=== PATIENT | male | born 1980 | race Caucasian/White ===

== ENCOUNTER 2020-10-10 09:59 | Emergency (ER) | payer OTHER, SELFPAY ==
[2020-10-10 10:05] VITALS: BP 202/124; PULSE 96; RESP 16; TEMP 37.1; O2SAT 97; BMI 34.1
--- NOTE | 2020-10-10 10:10 | DI.US.S_ITS ---
PROCEDURE: US PERIPH VENOUS LOW EXTREM LT INDICATIONS: PAIN GROIN TO CALF TECHNIQUE: Real-time imaging, as well as color and pulse Doppler interrogation, were performed of the lower extremity deep veins from the inguinal ligament to the popliteal fossa. COMPARISON: None. FINDINGS: The common femoral, femoral and popliteal veins are normally compressible, and free of intraluminal thrombus. Color and pulse Doppler demonstrate normal phasic intraluminal flow. There is normal augmentation response to distal compression maneuver. IMPRESSION: Negative for left lower extremity deep venous thrombosis. Dictated by: Timothy Carrillo D.O. on 10/10/2020 at 9:53 Approved by: Timothy Carrillo D.O. on 10/10/2020 at 9:55
--- NOTE | 2020-10-10 10:16 | ED.LOWEXIN ---
HPI - Extremity Injury (Lower) General Chief Complaint: Extremity Injury, Lower Stated Complaint: PAIN IN LEFT LEG. FROM [facility] Time Seen by Provider: 10/10/20 10:03 Source: patient Mode of arrival: Ambulatory Limitations: no limitations History of Present Illness HPI Narrative: 39-year-old male former smoker with a history of and unknown vein problem in his left thigh presents from the walk-in clinic for evaluation of various sorts of pain in his left leg for the past 7-8 days. He denies any specific injury. He states sometimes it is his lateral thigh, sometimes it is medial thigh, sometimes as his knee. He denies any numbness, tingling or weakness. He has no fever or chills. He denies recent travel, chest pain or shortness of breath. He does complain that he has back pain and recently got a new pair of boots. Denies trouble controlling bowel or bladder, no footdrop or leg weakness. He has no obvious provocation, palliation Onset (ago): day(s) Relieving factors: nothing Exacerbating factors: nothing Related Data Previous Rx's Medication Instructions Recorded ketorolac 10 mg PO Q6H PRN #14 tab 10/10/20 methylprednisolone [Medrol ([place])] See Rx Instructions .ROUTE 10/10/20 .COMPLEX #21 ea Allergies Allergy/AdvReac Type Severity Reaction Status Date / Time clarithromycin Allergy Verified 11/06/17 10:04 Review of Systems Constitutional Constitutional: Denies chills, Denies fatigue, Denies fever(s), Denies frequent falls, Denies lethargy and Denies weakness Eyes Eyes: Denies change in vision, Denies eye discharge, Denies irritation and Denies loss of vision ENT Ears, Nose, Mouth, and Throat: Denies change in voice, Denies dizziness, Denies neck pain, Denies sore throat and Denies throat swelling Cardiovascular Cardiovascular: Denies chest pain, Denies irregular heart rhythm, Denies lightheadedness, Denies palpitations, Denies dyspnea, Denies dyspnea on exertion and Denies orthopnea Respiratory Respiratory: Denies cough, Denies dyspnea, Denies dyspnea on exertion and Denies wheezing Gastrointestinal Gastrointestinal: Denies abdominal pain, Denies change in bowel habits, Denies diarrhea, Denies nausea and Denies vomiting Musculoskeletal Musculoskeletal: Denies neck pain and Denies numbness Comments: leg pain Integumentary/Breasts Skin/Breast: Denies pruritus, Denies erythema, Denies rash and Denies wounds Neurologic Neurologic: Denies behavioral changes, Denies confusion, Denies dizziness, Denies frequent falls, Denies loss of vision, Denies numbness and Denies weakness Psychiatric Psychiatric: Denies anxiety, Denies behavioral changes, Denies confusion, Denies depression, Denies homicidal ideation and Denies suicidal ideation Endocrine Endocrine: Denies fatigue, Denies flushing and Denies palpitations Hematologic/Lymphatic Hematologic/Lymphatic: Denies easy bruising Allergic/Immunologic Allergic/Immunologic: Denies urticaria, Denies throat swelling and Denies wheezing Patient History Medical History (Updated 10/10/20 @ 10:58 by Chuck Lugo DO) Allergic rhinitis (1997) Chronic back pain (1994) Fatigue GERD (gastroesophageal reflux disease) (~08/2017) Scheurmann's disease Weight gain Surgical History S/P ACL repair (04/2001) Family History (Updated 01/11/18 @ 16:13 by Kaela Hodges LPN) Father Cancer Grandmother No problems noted. Mother Hx of thyroidectomy Social History marital status: Smoking Status: Former smoker alcohol intake: current substance use type: does not use Smoking Status: Former smoker Exam Narrative Exam Narrative: GEN: AOx3 and in mild distress EYES: Pupils are equal, round, and reactive to light and accommodation. Extraoccular muscles are intact bilaterally. There is no subconjunctival hemorrhage or exudate. CHEST: Lungs are clear to auscultation bilaterally and free of wheezes, rales, or rhonchi. Heart rate is regular rhythm, there are no murmurs, clicks, rubs, or gallops. There is no chest wall tenderness. ABD: Abdomen is soft and nontender. There is no guarding or rebound. Bowel sounds are normal in all 4 quadrants. There is no mass or organomegaly. EXT: Full painless ROM of all extremities with no loss of sensation or strength. No pain, redness or swelling of left thigh BACK: strainer tender but free of any obvious external abnormalities. Patient exam notes decreased range of motion and muscle spasm, but no CVA tenderness, or vertebral point tenderness. There are no symptoms of cauda equina such as saddle anesthesia, and decreased reflexes, decreased sensation or strength. SKIN: Warm, pink, and dry. No erythema or rash Initial Vital Signs Initial Vital Signs: Vital Signs Temperature 98.8 F 10/10/20 10:05 Pulse Rate 96 H 10/10/20 10:05 Respiratory Rate 16 10/10/20 10:05 Blood Pressure 202/124 H 10/10/20 10:05 Pulse Oximetry 97 10/10/20 10:05 Course Orders Ordered: ED Orders 10/10/20 10:10 US periph venous low extrem lt Stat Vital Signs Vital signs: Vital Signs - 8 hr 10/10/20 10:05 Temperature 98.8 F Pulse Rate 96 H Respiratory Rate 16 Blood Pressure 202/124 H Pulse Oximetry 97 MDM - Extremity Injury (Lower) Imaging Data US - DVT: Radiologist's Impression: Albert Wiggins Naomie 40 M [address] [address]Ngczyirljt ReportSigned Patient: Albert Wiggins PMR#: [id number]: 1980Acct:[id number]/Sex: 39 / MDate of Service: 10/10/20Loc: EDAccession Number: [id number] Procedure: US perip venous low extrem lt Ordering Provider: Chuck Lugo D.O. PROCEDURE: US PERIPH VENOUS LOW EXTREM LT INDICATIONS: PAIN GROIN TO CALF TECHNIQUE: Real-time imaging, as well as color and pulse Doppler interrogation, were performed of the lower extremity deep veins from the inguinal ligament to the popliteal fossa. COMPARISON: None. FINDINGS: The common femoral, femoral and popliteal veins are normally compressible, and free of intraluminal thrombus. Color and pulse Doppler demonstrate normal phasic intraluminal flow. There is normal augmentation response to distal compression maneuver. IMPRESSION: Negative for left lower extremity deep venous thrombosis. Dictated by: Timothy Carrillo D.O. on 10/10/2020 at 9:53 Approved by: Timothy Carrillo D.O. on 10/10/2020 at 9:55 Discharge Plan Departure Patient Disposition: Home Clinical Impression: Acute leg pain Qualifiers: Laterality: left Qualified Code(s): M79.605 - Pain in left leg Instructions: DI for Leg Pain Activity Restrictions/Additional Instructions: *You have been diagnosed with [left leg pain, ultrasound would suggest no clot. Your description of the discomfort, and exam suggest to me perhaps the issue was your back] *What to do: *Please continue to take your regular medications as directed. [ ] New medication prescriptions sent to your pharmacy: [ ] [ ] New medication written as a paper prescription [ ] No new medications given *Please follow up with your primary care provider in 2-3 days, call for an appointment. Let them know you were seen in the Emergency Department and that we ask that you be seen in follow up. We will electronically transmit a record of today's note if your PCP is in our system *If you do not have a primary care provider please contact the [facility] Resource line at [phone]. They will ask some questions about your medical history and help get you set up with a doctor in the community. *Return to Emergency Department if you should have any new, worsening or concerning symptoms, such as [fever greater than 101 F, shaking chills, worsening pain, persistent vomiting or other bothersome symptoms] Prescriptions: New ketorolac 10 mg tablet 10 mg PO Q6H PRN (Reason: pain) Qty: 14 RF: 0 methylprednisolone [Medrol ([place])] 4 mg tablets,dose pack See Rx Instructions .ROUTE .COMPLEX Qty: 21 RF: 0 Referrals: Miscellaneous,Doctor, MD [Primary Care Provider] -
--- NOTE | 2020-10-10 11:02 | PC.NURSE ---
pt c/o pain in L leg from groin to calf. states he had an unhealthy vein removed in 2018 and wants to make sure there is no DVT, denies SOB. ambulatory.
== END 2020-10-10 11:03 | disposition home or self-care (01) ==
PROVIDERS: Emergency Provider Emergency Medicine
DX: M79.605 Pain in left leg (principal)
CPT/HCPCS: 93971; 99283

== ENCOUNTER 2021-06-29 12:19 | Emergency (ER) | payer OTHER, SELFPAY ==
[2021-06-29] VITALS (8 sets, daily range): BP systolic 179–214; BP diastolic 99–121; PULSE 67–98; RESP 10–27; TEMP 36.6; O2SAT 96–100
--- NOTE | 2021-06-29 12:31 | DI.RAD.S_ITS ---
PROCEDURE: XR CHEST 1V INDICATIONS: Chest pain TECHNIQUE: One view of the chest was acquired. COMPARISON: None. FINDINGS: Surgical changes and devices: None. Lungs and pleura: Lungs are clear. No pleural effusions or pneumothorax. Mediastinum: Mediastinal contours appear normal. Heart size is normal. Bones and chest wall: No suspicious bony lesions. Overlying soft tissues appear unremarkable. IMPRESSION: No acute cardiopulmonary process demonstrated radiographically. Dictated by: Mtaeo Chavarria M.D. on 06/29/2021 at 13:09 Approved by: Mateo Chavarria M.D. on 06/29/2021 at 13:09
[2021-06-29 12:50] LABS: Add Manual Diff / Slide Review NO; Basophils Absolute Auto 0 /uL (0-100); Basophils Percent Auto 0.4 % (0-2); Eosinophils Absolute Auto 100 /uL (0-450); Eosinophils Percent Auto 1.8 % (2-4); Hematocrit 43.6 % (41-53); Lymphocytes Absolute Auto 1500 /uL (1100-4500); Lymphocytes Percent Auto 18.6 % (25-40); Mean Corpuscular HGB Conc 34.4 % (30-36); Mean Corpuscular Hemoglobin 28.5 PG (26-34); Mean Corpuscular Volume 82.9 fL (80-100); Monocytes Absolute Auto 500 /uL (0-900); Neutrophils Absolute Auto 5900 /uL (1500-7000); Neutrophils Percent Auto 73.2 % (50-75); Platelet Count 249 X10^3/uL (150-400); Red Blood Cell Count 5.26 X10^6/uL (4.5-5.9); Red Cell Distribution Width 13.2 % (11.6-14.8); White Blood Cell Count 8.1 X10^3/uL (4.5-11.0)
--- NOTE | 2021-06-29 12:50 | ED_ITS ---
HPI - Chest Pain General Chief Complaint: Chest Pain Stated Complaint: chest pain, SOB, dizzy Time Seen by Provider: 06/29/21 12:25 Source: patient Mode of arrival: Ambulatory Limitations: no limitations History of Present Illness HPI narrative: Patient is a 40-year-old male. Has been evaluated by his primary doctor in the past for high blood pressure. He is not currently on any medications. He was instructed by his primary doctor to take his blood pressure at home and they would re-evaluate whether not he needs medication. He has done this over the past several weeks and he states that his blood pressures have been as high as 170s to 190 systolic. He is here because he is having left-sided chest disco mfort. This has happened to him in the past and has been off and on for the past year. Is also having some dizziness and some nonspecific shortness of breath. He felt given his chest discomfort and his elevated blood pressure in the rest of his symptoms he should be evaluated. Related Data Previous Rx's Medication Instructions Recorded lisinopril 10 mg tablet 10 mg PO DAILY #30 tab 06/29/21 Allergies Allergy/AdvReac Type Severity Reaction Status Date / Time clarithromycin Allergy Verified 06/29/21 12:35 Review of Systems Constitutional Constitutional: Reports as per HPI and Reports system reviewed and no additional complaints, except as documented Cardiovascular Cardiovascular: Reports as per HPI and Reports system reviewed and no additional complaints, except as documented Respiratory Respiratory: Reports as per HPI and Reports system reviewed and no additional complaints, except as documented Gastrointestinal Gastrointestinal: Reports as per HPI and Reports system reviewed and no additional complaints, except as documented Musculoskeletal Musculoskeletal: Reports system reviewed and no additional complaints, except as documented and Reports as per HPI Integumentary/Breasts Skin/Breast: Reports system reviewed and no additional complaints, except as documented and Reports as per HPI Neurologic Neurologic: Reports system reviewed and no additional complaints, except as documented and Reports as per HPI Hematologic/Lymphatic On Anticoagulants: No Patient History Medical History Allergic rhinitis (1997) Chronic back pain (1994) Fatigue GERD (gastroesophageal reflux disease) (~08/2017) Scheurmann's disease Weight gain Surgical History S/P ACL repair (04/2001) Family History Father Cancer Grandmother No problems noted. Mother Hx of thyroidectomy Social History marital status: Smoking Status: Former smoker alcohol intake: current substance use type: does not use Smoking Status: Former smoker tobacco type: cigarettes alcohol intake frequency: 0-2 drinks per day Substance Use Type: does not use Exam Initial Vital Signs Initial Vital Signs: Vital Signs Temperature 97.8 F 06/29/21 12:25 Pulse Rate 98 H 06/29/21 12:25 Respiratory Rate 20 06/29/21 12:25 Blood Pressure 214/120 H 06/29/21 12:25 Pulse Oximetry 100 06/29/21 12:25 HENMT Head: normal to inspection Resp Effort & Inspection: normal respiratory effort Auscultation: clear to auscultation bilaterally Cardio Rate: regular rate Rhythm: regular rhythm GI Inspection: normal to inspection Skin General: no rashes or lesions noted Neuro General: patient alert, patient awake and moves all extremities Extrem General: normal to inspection and No edema Psych Appearance: grossly normal and well kempt Course Orders Ordered: ED Orders 06/29/21 12:30 COVID19 -Nasal swab/Pre-Proc Stat 06/29/21 12:31 XR chest 1V Stat 06/29/21 12:33 EKG-12 Lead Stat 06/29/21 12:45 Complete Blood Count AUTO DIFF Stat Comprehensive Metabolic Panel Stat Lipase Stat Magnesium Stat Troponin & CK Cardiac Panel Stat Discontinued Medications Aspirin (Aspirin 81 Mg Chew Tab) 324 mg PO NOW ONE Stop: 06/29/21 12:32 Last Admin: 06/29/21 13:03 Dose: 324 mg Documented by: DAVID Labetalol HCl (Labetalol 20 Mg/4 Ml Syringe) 10 mg IV NOW ONE Stop: 06/29/21 12:51 Last Admin: 06/29/21 13:07 Dose: 10 mg Documented by: DAVID Nitroglycerin (Nitroglycerin 0.4 Mg Sl Tab) 0.4 mg SL [id number] PRN PRN Reason: Chest Pain Vital Signs Vital signs: Vital Signs - 8 hr 06/29/21 12:25 06/29/21 12:36 02/01/22 12:42 Temperature 97.8 F Pulse Rate 98 H 96 H 98 H Respiratory Rate 20 23 27 H Blood Pressure 214/120 H 209/121 H Pulse Oximetry 100 99 99 06/29/21 12:45 06/29/21 13:00 06/29/21 13:07 Temperature Pulse Rate 89 90 78 Respiratory Rate 19 23 Blood Pressure 200/99 H 200/99 H Pulse Oximetry 100 96 06/29/21 13:15 06/29/21 13:30 Temperature Pulse Rate 71 67 Respiratory Rate 11 L 10 L Blood Pressure 183/100 H 179/104 H Pulse Oximetry 96 96 MDM - Chest Pain Lab Data Attestation: I reviewed the patient's lab results. Result diagrams: 06/29/21 12:45 06/29/21 12:45 Labs: Lab Results 06/29/21 06/29/21 06/29/21 Range/Units 12:30 12:45 12:45 WBC 8.1 (4.5-11.0) X10^3/uL RBC 5.26 (4.5-5.9) X10^6/uL Hgb 15.0 (13.5-17.5) g/dL Hct 43.6 (41-53) % MCV 82.9 (80-100) fL MCH 28.5 (26-34) PG MCHC 34.4 (30-36) % RDW 13.2 (11.6-14.8) % Plt Count 249 (150-400) X10^3/uL Neut % (Auto) 73.2 (50-75) % Lymph % (Auto) 18.6 L (25-40) % [place] % (Auto) 6.0 (3-14) % Eos % (Auto) 1.8 L (2-4) % Baso % (Auto) 0.4 (0-2) % Neut # (Auto) 5900 (6339-2485) /uL Lymph # (Auto) 1500 (1798-9096) /uL [place] # (Auto) 500 (0-900) /uL Eos # (Auto) 100 (0-450) /uL Baso # (Auto) 0 (0-100) /uL Sodium 138 (137-145) mmol/L Potassium 4.1 (3.4-5.1) mmol/L Chloride 103 (98-107) mmol/L Carbon Dioxide 30 (22-32) mmol/L BUN 16 (9-20) mg/dL Creatinine 0.92 (0.66-1.25) mg/dL Estimated GFR > 60.0 (>60) mL/min BUN/Creatinine Ratio 17.4 (6-22) Glucose 121 H (70-100) mg/dL Calcium 9.0 (8.4-10.2) mg/dL Magnesium 1.9 (1.6-2.3) mg/dL Total Bilirubin 0.7 (0.2-1.3) mg/dL AST 44 (17-59) IU/L ALT 27 (<50) IU/L Alkaline Phosphatase 69 (38-126) U/L Total Creatine Kinase 114 (55-170) U/L CK-MB (CK-2) 0.93 (<2.37) ng/mL CK-MB (CK-2) Rel Index 0.8 L (1.5-5.0) % Troponin I < 0.012 (0.01-0.034) ng/mL Total Protein 8.0 (6.3-8.2) g/dL Albumin 4.6 (3.5-5.0) g/dL Globulin 3.4 (1.7-4.1) g/dL Albumin/Globulin Ratio 1.4 (1.0-2.8) Lipase 54 (23-300) U/L SARS-CoV-2 (PCR) Negative (Negative) Imaging Data Chest x-ray: Radiologist's Impression: [address] [address] XRay Report Signed Patient: Albert Wiggins MR#: [id number] : 1980 Acct:[id number] Age/Sex: 40 / M Date of Service: 06/29/21 Loc: ED Accession Number: [id number] ?? Procedure: XR chest 1V Ordering Provider: Travis Mack D.O. PROCEDURE:? XR CHEST 1V ? INDICATIONS:? Chest pain ? TECHNIQUE:? One view of the chest was acquired.? ? COMPARISON:? None. ? FINDINGS:? ? Surgical changes and devices:? None.? ? Lungs and pleura:? Lungs are clear.? No pleural effusions or pneumothorax.? ? Mediastinum:? Mediastinal contours appear normal.? Heart size is normal.? ? Bones and chest wall:? No suspicious bony lesions.? Overlying soft tissues appear unremarkable.? ? IMPRESSION:? No acute cardiopulmonary process demonstrated radiographically. ? ? Dictated by: Mateo Chavarria M.D. on 06/29/2021 at 13:09 ? ? Approved by: Mateo Chavarria M.D. on 06/29/2021 at 13:09?? ECG Data Attestation: I personally reviewed and interpreted this ECG as follows: Interpretation: Sinus rhythm Ventricular rate 86 Normal axis Normal QRS Normal QTC No ST T wave changes MDM Narrative Medical decision making narrative: COVID is negative, chest x-ray is unremarkable, EKG is unremarkable, labs unremarkable. Was hypertensive upon arrival. This did improve with antihypertensive medications. Was still having some chest discomfort despite this improvement of his blood pressure. I do have low suspicion for ACS given the fact that his chest discomfort has been off and on for several years. Had a discussion with him regarding his blood pressure. We will start him on lisin opril. Will have him continue to take his blood pressures at home and contact his primary doctor about potentially adjusting this medication if needed. We did discuss specific return precautions. He expressed understanding and agreement. Discharge Plan Departure Patient Disposition: Home Clinical Impression: Hypertension Instructions: Essential Hypertension Activity Restrictions/Additional Instructions: I recommend that you take your blood pressure medication daily as directed. Continue to take your blood pressure at home like we discussed. Contact your primary doctor for a follow-up. Return to the emergency department for any new or worsening symptoms. Prescriptions: New lisinopril 10 mg tablet 10 mg PO DAILY Qty: 30 2RF Referrals: Miscellaneous,MD Lucy [Primary Care Provider] -
[2021-06-29] MEDS: ASPIRIN 81 MG CHEW TAB 324 MG PO (13:03)
[2021-06-29 13:07] LABS: Alanine Aminotransferase 27 IU/L (<50); Albumin 4.6 g/dL (3.5-5.0); Albumin Globulin Ratio 1.4 (1.0-2.8); Alkaline Phosphatase 69 U/L (38-126); Aspartate Aminotransferase 44 IU/L (17-59); BUN Creatinine Ratio 17.4 (6-22); Bilirubin Total 0.7 mg/dL (0.2-1.3); Blood Urea Nitrogen 16 mg/dL (9-20); Carbon Dioxide 30 mmol/L (22-32); Chloride 103 mmol/L (98-107); Creatine Kinase 114 U/L (55-170); Estimated Glomerular Filt Rate > 60.0 mL/min (>60); Globulin 3.4 g/dL (1.7-4.1); Glucose 121 mg/dL (70-100); Lipase 54 U/L (23-300); Magnesium 1.9 mg/dL (1.6-2.3); Potassium 4.1 mmol/L (3.4-5.1); Sodium 138 mmol/L (137-145)
[2021-06-29] MEDS: LABETALOL 20 MG/4 ML SYRINGE 10 MG IV (13:07)
[2021-06-29 13:17] LABS: Troponin I < 0.012 ng/mL (0.01-0.034)
[2021-06-29 13:18] LABS: COVID19 -Nasal RAPID Negative (Negative)
[2021-06-29 13:22] LABS: CKMB % Relative Index 0.8 % (1.5-5.0); Creatine Kinase MB 0.93 ng/mL (<2.37)
[2021-06-29 13:23] LABS: HEMOLYSIS 81 (0-50)
== END 2021-06-29 14:02 | disposition home or self-care (01) ==
PROVIDERS: Emergency Provider Emergency Medicine
DX: R07.9 Chest pain, unspecified (principal); I10 Essential (primary) hypertension; Z20.822 Contact with and (suspected) exposure to COVID-19; Z87.891 Personal history of nicotine dependence
CPT/HCPCS: 36415; 71045; 80053; 82550; 82553; 83690; 83735; 84484; 85025; 87635; 93005; 96374; 99284; C9803

== ENCOUNTER → 2021-08-23 15:28 | Outpatient (CLI) | payer OTHER, SELFPAY | PROVIDERS: Visit Provider Student in an Organized Health Care Education/Training Program | DX: J02.9 Acute pharyngitis, unspecified (principal) | CPT/HCPCS: 87070 ==

== ENCOUNTER → 2021-08-23 16:12 | Outpatient (CLI) | payer OTHER, SELFPAY ==
[2021-08-23 16:40] LABS: Monotest Negative (Negative)
== END ==
PROVIDERS: Referring Provider Student in an Organized Health Care Education/Training Program; Visit Provider Student in an Organized Health Care Education/Training Program
DX: J02.9 Acute pharyngitis, unspecified (principal)
CPT/HCPCS: 36415; 86318; 87070

== ENCOUNTER 2025-02-24 11:25 | Emergency (ER) | payer OTHER, SELFPAY ==
[2025-02-24 11:30] VITALS: BP 135/86; PULSE 99; RESP 20; TEMP 36.8; O2SAT 100; BMI 34.4
--- NOTE | 2025-02-24 11:30 | DI.RAD.S_ITS ---
PROCEDURE: XR CHEST 1V INDICATIONS: Chest Pain TECHNIQUE: One view of the chest was acquired. COMPARISON: Merged With [facility], CR, XR CHEST 1V, 06/29/2021, 12:50. FINDINGS: Mild -to-moderate bilateral perihilar and lower lobe peribronchial thickening, some of which may be related expiratory result; however, bronchitis, viral infection, asthma or other process should be considered. Degenerative changes of the thoracic spine. No pneumothorax, no pleural effusion, no lobar consolidation. Cardiopericardial silhouette and pulmonary vasculature within normal limits. IMPRESSION: Peribronchial thickening as discussed above. Follow-up suggested. If symptoms persist or worsen, or there is high clinical suspicion of Thoracic abnormality, CT chest could be performed. Dictated by: Darci Patton M.D. on 02/24/2025 at 12:21 Approved by: Darci Patton M.D. on 02/24/2025 at 12:29
--- NOTE | 2025-02-24 11:34 | EKG_ITS ---
[address] [address] Test Date: 2025-02-24 Pat Name: Albert Wiggins Department: Room: Gender: Male [employer] Operator: PEREZ : 1980 Requested By: Order Number: [id number] Reading MD: Ronan Hodges Measurements Intervals [place] Rate: 90 P: 54 WV: 156 QRS: -40 QRSD: 88 T: 40 QT: 354 QTc: 433 Interpretive Statements Normal sinus rhythm Left axis deviation Inferior-posterior infarct , age undetermined Electronically Signed On 02-26-2025 8:06:52 PDT by Ronan Hodges
--- NOTE | 2025-02-24 11:35 | DI.RAD.S_ITS ---
PROCEDURE: XR SHOULDER RT 3V INDICATIONS: Pain after crawling to get up into a bucket lift x 3 days TECHNIQUE: 3 views of the shoulder were acquired. COMPARISON: None. FINDINGS: Approximately 2.4 x 1.8 x 1.1 cm multi lobulated well corticated calcification cephalad to the humeral head and greater tuberosity commonly calcific tendinitis of the distal supraspinatus. Mild degenerative changes of the right acromioclavicular and glenohumeral joints with joint space narrowing and small osteophytes. No radiographic evidence of displaced fracture, dislocation or high attenuation soft tissue foreign body. IMPRESSION: Calcifications commonly calcific tendinitis. Mild degenerative changes. If symptoms persist or worsen, or there is high clinical suspicion of right shoulder abnormality, MRI could be performed. Dictated by: Darci Patton M.D. on 02/24/2025 at 12:29 Approved by: Darci Patton M.D. on 02/24/2025 at 12:31
[2025-02-24 12:06] LABS: Add Manual Diff / Slide Review NO; Hematocrit 44.6 % (41-53); Hemoglobin 15.1 g/dL (13.5-17.5); Lymphocytes Absolute Auto 1400 /uL (1100-4500); Mean Corpuscular HGB Conc 33.8 % (30-36); Mean Corpuscular Hemoglobin 27.6 PG (26-34); Mean Corpuscular Volume 81.8 fL (80-100); Platelet Count 306 X10^3/uL (150-400)
[2025-02-24 12:12] LABS: INR 1.0 (0.9-1.3); Prothrombin Time 11.4 SECONDS (9.4-12.5)
[2025-02-24 12:13] VITALS: PULSE 66; O2SAT 98
[2025-02-24 12:14] LABS: PTT Partial Thromboplastin Tim 29 SECONDS (25.1-36.5)
[2025-02-24 12:16] LABS: Alanine Aminotransferase 42 IU/L (<50); Albumin 4.5 g/dL (3.5-5.0); Albumin Globulin Ratio 1.3 (1.0-2.8); Alkaline Phosphatase 87 U/L (38-126); Blood Urea Nitrogen 16 mg/dL (9-20); Calcium 9.9 mg/dL (8.4-10.2); Carbon Dioxide 27 mmol/L (22-32); Chloride 101 mmol/L (98-107); Creatine Kinase 983 U/L (55-170); Estimated Glomerular Filt Rate > 60 mL/min (>60); Globulin 3.5 g/dL (1.7-4.1); Glucose 118 mg/dL (70-99); HEMOLYSIS < 15 (0-50); Lipase 50 U/L (23-300); Magnesium 1.8 mg/dL (1.6-2.3); Potassium 4.9 mmol/L (3.4-5.1); Sodium 136 mmol/L (137-145); Total Protein 8.0 g/dL (6.3-8.2)
[2025-02-24 12:28] LABS: NT-proBNP (BNP-Adult 18+) 657 pg/mL (<125)
[2025-02-24 12:30] VITALS: BP 112/76; PULSE 57; RESP 13; O2SAT 96
[2025-02-24 12:30] LABS: Troponin I 9.270 ng/mL (0.01-0.034)
[2025-02-24] MEDS: ASPIRIN 81 MG CHEW TAB 324 MG PO (12:41)
--- NOTE | 2025-02-24 12:49 | ED_ITS ---
HPI - Chest Pain General Chief Complaint: Chest Pain Stated Complaint: chest pain possible Acid reflux Time Seen by Provider: 02/24/25 12:03 Source: patient Mode of arrival: Ambulatory Limitations: no limitations History of Present Illness HPI narrative: This is a 44-year-old man with history of hypertension elevated cholesterol and family history of coronary disease. He is reporting substernal chest pain beginning 9:30 a.m. yesterday, he has seen at approximately 12:30 p.m.. Reports his pain is presently 6/10 in severity across the anterior chest. At its worst onset yesterday it was about 7/10. This morning he noticed that the chest pain was worse and he felt short of breath with the exertion. He does not take medications for erectile dysfunction, he has no history of brain aneurysm or GI bleeding. He has not had fevers, he says that he injured his right shoulder the day before the onset of this while climbing into the bucket of a tractor, this was not associated with the fall or other trauma. Has not been having fevers or cough. Related Data Previous Rx's ?Medication ?Instructions ?Recorded lisinopril 10 mg tablet 10 mg PO DAILY #30 tabs 06/19 Allergies Allergy/AdvReac Type Severity Reaction Status Date / Time clarithromycin Allergy Verified 02/24/25 11:30 Patient History Medical History Allergic rhinitis (1997) Chronic back pain (1994) Fatigue GERD (gastroesophageal reflux disease) (~08/2017) Scheurmann's disease Weight gain Surgical History S/P ACL repair (04/2001) Family History Father Cancer Grandmother No problems noted. Mother Hx of thyroidectomy Social History marital status: alcohol intake: current substance use type: does not use Smoking Status: Former smoker tobacco type: cigarettes alcohol intake frequency: 0-2 drinks per day Exam Initial Vital Signs Initial Vital Signs: Vital Signs Temperature 98.2 F 02/24/25 11:30 Pulse Rate 99 H 02/24/25 11:30 Respiratory Rate 20 02/24/25 11:30 Blood Pressure 135/86 02/24/25 11:30 Pulse Oximetry 100 02/24/25 11:30 Oxygen Delivery Method Room Air 02/24/25 11:30 vital signs are reviewed, blood pressure is soft. Const General: cooperative and No acute distress [facility] Head: normocephalic and atraumatic Face and sinus: face symmetric Mouth: moist mucous membranes Eyes Pupils: PERRL EOM: EOM intact bilaterally Neck Neck: normal visual inspection, supple and No JVD Chest Chest: normal inspection of the chest Resp Effort & Inspection: normal respiratory effort and able to speak in complete sentences Auscultation: clear to auscultation bilaterally Cardio Rate: regular rate Rhythm: regular rhythm Heart Sounds: no murmurs Other: Normal heart rate GI Inspection: normal to inspection Palpation: soft Auscultation: normal bowel sounds Back/Spine/Pelvis Back: normal to inspection Skin General: no rashes or lesions noted and warm Neuro General: patient alert, patient oriented x3 and moves all extremities Speech: speech normal Extrem General: full ROM Psych Appearance: grossly normal Course Orders Ordered: ED Orders 02/24/25 11:30 XR chest 1V Stat EKG-12 Lead Stat 02/24/25 11:35 XR shoulder RT 2+ views Stat 02/24/25 12:00 Complete Blood Count AUTO DIFF Stat Comprehensive Metabolic Panel Stat D Dimer Stat Lipase Stat Magnesium Stat NT-proBNP (BNP-Adult 18+) Stat PTT Partial Thromboplastin Masoud Stat Prothrombin Time INR Stat Troponin & CK Cardiac Panel Stat 02/24/25 12:41 Consult to Cardiology Stat 02/24/25 12:45 Complete Blood Count AUTO DIFF Routine Prothrombin Time INR Routine 02/25/25 05:00 Hemoglobin and Hematocrit DAILY Platelet Count DAILY 02/26/25 05:00 Hemoglobin and Hematocrit DAILY Platelet Count DAILY Heparin Sodium/Dextrose (Heparin Drip) 25,000 unit in 500 mls @ 26.127 mls/hr IV CONT BECCA; Protocol Sodium Chloride (Normal Saline 0.9%) 1,000 mls @ 500 mls/hr IV BOLUS ONE Stop: 02/24/25 14:44 Discontinued Medications Aspirin (Aspirin 81 Mg Chew Tab) 324 mg PO NOW ONE Stop: 02/24/25 11:31 Last Admin: 02/24/25 12:41 Dose: 324 mg Documented By: DEVIKA Heparin Sodium (Porcine) (Heparin 5,000 Unit/Ml Vial) 5,000 unit IV NOW ONE Stop: 02/24/25 12:45 Consultations Consultation #1: Case is discussed with Dr. Kang, cardiology. He reviewed the EKG, as well as hearing the case. He recommended the patient be heparinized and transferred to [facility]. Consultation #2: Case discussed with Dr. Quiñones, histology technician at [facility]. Also asked that we involve General Cardiology at [facility]. Recommends that the patient be transferred to that facility. Case was discussed with Dr. Mac [facility] emergency department transfers accepted. Vital Signs Vital signs: Vital Signs - 8 hr 02/24/25 11:30 Temperature 98.2 F Pulse Rate 99 H Respiratory Rate 20 Blood Pressure 135/86 Pulse Oximetry 100 Oxygen Delivery Method Room Air MDM - Chest Pain Lab Data Lab results narrative: CBC shows a leukocytosis with a white count of 14.1 platelets are normal. Chemistries are reassuring, troponin strongly positive at greater than 9, proBNP is also elevated. 02/24/25 12:00 02/24/25 12:00 Labs: Lab Results 02/24/25 Range/Units 12:00 WBC 14.1 H (4.5-11.0) X10^3/uL RBC 5.45 (4.5-5.9) X10^6/uL Hgb 15.1 (13.5-17.5) g/dL Hct 44.6 (41-53) % MCV 81.8 (80-100) fL MCH 27.6 (26-34) PG MCHC 33.8 (30-36) % RDW 13.6 (11.6-14.8) % Plt Count 306 (150-400) X10^3/uL Neut % (Auto) 83.6 H (50-75) % Lymph % (Auto) 10.0 L (25-40) % Travis % (Auto) 4.9 (3-14) % Eos % (Auto) 0.9 L (2-4) % Baso % (Auto) 0.6 (0-2) % Neut # (Auto) 85647 H (9309-8390) /uL Lymph # (Auto) 1400 (7168-8721) /uL Travis # (Auto) 700 (0-900) /uL Eos # (Auto) 100 (0-450) /uL Baso # (Auto) 100 (0-100) /uL PT 11.4 (9.4-12.5) SECONDS INR 1.0 (0.9-1.3) APTT 29 (25.1-36.5) SECONDS D-Dimer 462 (<500) ng/ml Sodium 136 L (137-145) mmol/L Potassium 4.9 (3.4-5.1) mmol/L Chloride 101 (98-107) mmol/L Carbon Dioxide 27 (22-32) mmol/L BUN 16 (9-20) mg/dL Creatinine 0.88 (0.66-1.25) mg/dL Estimated GFR > 60 (>60) mL/min BUN/Creatinine Ratio 18.2 (6-22) Glucose 118 H (70-99) mg/dL Calcium 9.9 (8.4-10.2) mg/dL Magnesium 1.8 (1.6-2.3) mg/dL Total Bilirubin 0.7 (0.2-1.3) mg/dL AST 197 H (17-59) IU/L ALT 42 (<50) IU/L Alkaline Phosphatase 87 (38-126) U/L Total Creatine Kinase 983 H (55-170) U/L Troponin I 9.270 H* (0.01-0.034) ng/mL NT-Pro-B Natriuret Pep 657 H (<125) pg/mL Total Protein 8.0 (6.3-8.2) g/dL Albumin 4.5 (3.5-5.0) g/dL Globulin 3.5 (1.7-4.1) g/dL Albumin/Globulin Ratio 1.3 (1.0-2.8) Lipase 50 (23-300) U/L Imaging Data Chest x-ray: My Impression: Independently reviewed chest x-ray, no acute findings ECG Data Attestation: I personally reviewed and interpreted this ECG as follows: (EKG shows sinus rhythm at 90. There were cues in 3 and AVF there are also R-wave present in V1 with subtle ST depression in V1. EKG is concerning for ME but not diagnostic for ST-elevation ME) MDM Narrative Medical decision making narrative: 44-year-old male with 3 cardiac risk factors presenting with chest pain that is highly concerning for ischemia. EKG does not have diagnostic criteria for STEMI but is concerning for ME I have no baseline tracing and with ongoing chest pain I think it is appropriate that he be evaluated urgently at facility capable of doing a percutaneous intervention. Case was discussed with cardiology here and at [facility]. Patient has been accepted at [facility] to the emergency department. He has been started on heparin and he has received aspirin. I am going to refrain from nitroglycerin given the inferior changes on his EKG in his soft blood pressure. This patient's heart score is obviously greater than 3 I did not formally calculate. Discharge Plan Departure [facility] Clinical Impression: Acute ME Qualifiers: Myocardial infarction type: ST elevation myocardial infarction Involved coronary artery: unspecified coronary artery Qualified Code(s): I21.3 - ST elevation (STEMI) myocardial infarction of unspecified site Prescriptions: No Action lisinopril 10 mg tablet 10 mg PO DAILY Qty: 30 2RF
[2025-02-24 13:00] VITALS: BP 140/79; PULSE 97; RESP 12; O2SAT 100
[2025-02-24] MEDS: HEPARIN 5,000 UNIT/ML VIAL 5000 UNIT IV (13:07)
[2025-02-24] MEDS: SODIUM CHLORIDE 0.9% 1,000 ML 500 ML IV (13:11)
[2025-02-24] MEDS: HEPARIN DRIP 25,000 UNIT/500 ML IV.SOLN 19.8 UNIT IV (13:12)
[2025-02-24 13:17] VITALS: BP 159/93; PULSE 95; RESP 17; O2SAT 100
[2025-02-24 13:20] VITALS: BP 161/93; PULSE 91; RESP 17; O2SAT 100
--- NOTE | 2025-02-24 13:32 | PC.NURSE ---
AGRICULTURAL SERVICE WORKER Note: Patient gave verbal permission to let his , Paty, know that he was being transferred to [facility] ED if she calls or comes in. He was unable to reach her prior to leaving and this would be where she would check for him first.
--- NOTE | 2025-02-24 13:46 | PC.NURSE ---
Pt transferred to [facility] via EMS for STEMI , heparin bolus 5,000 given prior to transfer, Heparin drip running at 9.1 u/kg/hr (19.8ml/hr) at time of EMS transfer. NS 0.9% running at 500ml/hr. See JUL. Pt AOx4, GCS 15. VSS. Report given to Justa HARKINS at [facility] ED.
== END 2025-02-24 13:26 | disposition short-term general hospital (02) ==
PROVIDERS: Emergency Provider Emergency Medicine
DX: I21.3 ST elevation (STEMI) myocardial infarction of unspecified site (principal)
CPT/HCPCS: 36415; 71045; 73030; 80053; 82550; 83690; 83735; 83880; 84484; 85025; 85379; 85610; 85730; 93005; 96374; 99284; 99285; J1644